=== PATIENT | male | born 1995 | race African-American/Black ===

== ENCOUNTER 2023-02-26 16:42 | Emergency (ER) | payer SELFPAY ==
[2023-02-26 17:01] LABS: Hemoglobin 14.1 g/dL (14.0-18.0); Mean Corpuscular HGB CONC 32.9 g/dL (32.0-36.0); Mean Corpuscular Volume 72.9 fl (78.0-98.0); Mean Platelet Volume 10.5 fL (7.4-10.4); Platelet Count 247 10x3/uL (130-400); RBC Distribution Width 14.2 % (11.5-14.5); Red Blood Cell (RBC) Count 5.87 mill/uL (4.70-6.10); White Blood Cell (WBC) Count 5.4 10x3/uL (4.8-10.8)
[2023-02-26] MEDS ORDERED: Ketorolac Tromethamine 30 MG/ML VIAL ONE (17:01)
[2023-02-26 17:02] LABS: Delete Auto Diff?? YES; Manual Diff?? YES
[2023-02-26 17:23] LABS: ALT (SGPT) 12 U/L (8-55); AST (SGOT) 20 U/L (5-34); Albumin 4.2 g/dL (3.5-5.0); Alkaline Phosphatase 86 U/L (40-110); Anion Gap 12 mmol/L (10-20); BUN (Urea Nitrogen) 7 mg/dL (8.9-20.6); Bilirubin, Total 0.3 mg/dL (0.2-1.2); Calc. Creatinine Clearance 0 mL/min (70-130); Calcium 9.6 mg/dL (7.8-10.44); Carbon Dioxide 25 mmol/L (22-29); Chloride 107 mmol/L (98-107); Estimated GFR 106; Globulin 3.3 g/dL (2.4-3.5); Glucose 113 mg/dL (70-105); Lipase 58 U/L (8-78); Protein, Total 7.5 g/dL (6.0-8.3); Sodium 140 mmol/L (136-145)
[2023-02-26 17:27] LABS: Band 5 % (5-11); CellaVision Operator ID LAB.MJL; Eosinophils 3 % (0-10); Hypochromia SLIGHT = 6-15 cells HPF (0-5); Lymphocytes 53 % (21-51); Microcytosis SLIGHT = 6-15 cells HPF (0-5); Monocytes 11 % (0-10); Neutrophil 21 % (42-75); Ovalocytes SLIGHT = 2-5 cells HPF (0-1); Platelet Adequacy Comment Platelets Normal; Reactive Lymphocytes 8 % (0-10); Target Cells SLIGHT = 2-5 cells HPF (0-1); Total Cell Count 101
== END 2023-02-26 17:59 | disposition home or self-care (01) ==
LOC: ERS 16:42
DX: R07.2 Precordial pain (principal); F17.210 Nicotine dependence, cigarettes, uncomplicated
CPT/HCPCS: 71045; 80053; 83690; 84484; 85025; 93005; 94760; 96374; J1885

== ENCOUNTER 2023-03-26 14:48 | Emergency (ER) | payer SELFPAY | END 2023-03-26 15:15 | disposition home or self-care (01) | LOC: ERS 14:48 | DX: M79.641 Pain in right hand (principal); M79.642 Pain in left hand; F17.210 Nicotine dependence, cigarettes, uncomplicated | CPT/HCPCS: 99283 ==

== ENCOUNTER 2024-05-11 10:02 | Emergency (ER) | payer SELFPAY ==
[2024-05-11 23:21] LABS: Chlam.trachomatis by PCR,Urine Not Detected (NotDetected); GC N.gonorrhoeae PCR,UrineVOID Not Detected (NotDetected)
== END 2024-05-11 10:18 | disposition home or self-care (01) ==
LOC: ERS 10:02
DX: Z20.2 Contact with and (suspected) exposure to infections with a predominantly sexual mode of transmission (principal); F17.210 Nicotine dependence, cigarettes, uncomplicated; F17.290 Nicotine dependence, other tobacco product, uncomplicated
CPT/HCPCS: 87491; 87591; 99281

== ENCOUNTER 2025-06-07 13:40 | Emergency (ER) | payer SELFPAY ==
[2025-06-07] MEDS ORDERED: cefTRIAXone (ROCEPHIN) 500 MG VIAL ONE (14:11)
[2025-06-07] MEDS ORDERED: Lidocaine 1% PF 5 ML VIAL ONE (14:11)
[2025-06-07] MEDS ORDERED: Azithromycin 250 MG TAB ONE (14:20)
[2025-06-07 14:40] LABS: Bacteria/HPF None Seen HPF (None Seen); CAUTI Indications for Culture Acute Hematuria; Glucose, Urine (Dipstick) Normal (Negative); Leukocyte Negative Leu/uL (Negative); Mucous/LPF Rare LPF (<2+); Protein, Urine (Dipstick) 20 mg/dL (Neg-Trace); RBC/HPF 0-3 HPF (0-3); Specific Gravity, Urine 1.033 (1.002-1.036); WBC/HPF 0-3 HPF (0-3)
[2025-06-07 14:41] LABS: Urine Culture Reflex No No
[2025-06-07 22:53] LABS: Chlam.trachomatis by PCR,Urine Not Detected (NotDetected); GC N.gonorrhoeae PCR,UrineVOID Not Detected (NotDetected)
== END 2025-06-07 15:06 | disposition home or self-care (01) ==
LOC: ERS 13:40
DX: J30.9 Allergic rhinitis, unspecified (principal); R36.9 Urethral discharge, unspecified; R30.0 Dysuria; F17.210 Nicotine dependence, cigarettes, uncomplicated; F17.290 Nicotine dependence, other tobacco product, uncomplicated
CPT/HCPCS: 81001; 87428; 87491; 87591; 96372; 99283; J0696